=== PATIENT | male | born 2000 | race Caucasian/White ===

== ENCOUNTER 2022-05-02 09:38 | Emergency (ER) | payer BC ==
[~2022-05-02] VITALS: Ht 173.3 cm; Wt 60.0 kg
[~2022-05-02 09:38] MED LIST: AMOXICILLI400 MG/5 M PO; CIPRODEX1 ML AS; MOTRIN, CH20 MG/1 ML OR; NO; TET/DIP TOX1 ML IM; TYLENOL CH160 MG/51 OR
[2022-05-02 10:55] LABS: BASO% 0.2 % (0-3); EOS% 0.2 % (0-8); IMMATURE GRANULOCYTES 0.1 % (0.0-5.0); LYMPH% 5.1 % (15-41); MEAN CELL VOLUME 95.4 fL CALC (80.0-100.0); MEAN CORPUSCULAR HGB 31.6 pG CALC (26.0-32.0); MEAN CORPUSCULAR HGB CONC 33.1 g/dL CAL (32.0-36.0); NEUT# 9.37 thou/uL (1.82-7.42); NEUT% 85.4 % (42-76); RED BLOOD COUNT 5.64 mill/uL (4.70-6.10); RED CELL DISTRI WIDTH 11.9 % (11.5-15.5)
[2022-05-02 10:59] LABS: HEMATOCRIT 53.8 % (39.0-50.0); HEMOGLOBIN 17.8 g/dl (14.0-18.0)
[2022-05-02 11:10] LABS: ALBUMIN 5.3 g/dL (3.2-5.0); ALKALINE PHOSPHATASE 58 u/l (38-126); ANION GAP 15 (6-22 (CALC)); BILIRUBIN, TOTAL 1.4 mg/dL (0.2-1.3); BUN 19 mg/dL (9-20); BUN/CREATININE RATIO 13 (12-20 (CALC)); CARBON DIOXIDE 29 mmol/l (22-30); CHLORIDE 96 mmol/l (95-108); CREATININE 1.5 mg/dL (0.7-1.3); GFR FOR AFR.AMER. > 60 ML/MIN (>=60 (CALC)); GFR OTHER RACES 59 ML/MIN (>=60 (CALC)); LIPASE 230 u/l (23-300); POTASSIUM 4.8 mmol/l (3.5-5.1); SGOT/AST 40 u/l (17-59); SODIUM 135 mmol/l (137-146); TOTAL PROTEIN 8.3 g/dL (6.3-8.2)
[2022-05-02 11:18] VITALS: BP 142/95
[2022-05-02 11:30] VITALS: BP 128/87
[2022-05-02] MEDS ORDERED: AMOX/K CLAV875 M1 PO (13:55)
[2022-05-02 14:20] VITALS: BP 128/87
== END 2022-05-02 14:30 | disposition home or self-care (01) | DRG 552 ==
LOC: ED 09:38
PROVIDERS: Family Medicine
DX: M54.2 Cervicalgia (principal); R10.9 Unspecified abdominal pain; R07.81 Pleurodynia
CPT/HCPCS: Q9967

== ENCOUNTER 2022-06-21 10:55 | Emergency (ER) | payer BC ==
[2022-06-21] VITALS (8 sets, daily range): BP systolic 115–131; BP diastolic 70–90
[~2022-06-21] VITALS: Ht 173.3 cm; Wt 68.0 kg
[~2022-06-21 10:55] MED LIST changes: +AMOX/K CLAV875 M1 PO
[2022-06-21] MEDS ORDERED: NAPROXEN500 MG PO (12:26)
[2022-06-21] MEDS ORDERED: METHOCARBAMOL500 MG PO (12:26)
== END 2022-06-21 13:01 | disposition home or self-care (01) | DRG 999 ==
LOC: ED 10:55
DX: S00.33XA Contusion of nose, initial encounter (principal); S06.9X9A Unspecified intracranial injury with loss of consciousness of unspecified duration, initial encounter; Y04.0XXA Assault by unarmed brawl or fight, initial encounter; Y92.410 Unspecified street and highway as the place of occurrence of the external cause

== ENCOUNTER 2023-03-22 01:13 | Emergency (ER) | payer BC ==
[~2023-03-22] VITALS: Ht 177.8 cm; Wt 77.0 kg
[~2023-03-22 01:13] MED LIST changes: +METHOCARBAMOL500 MG PO; +NAPROXEN500 MG PO
[2023-03-22 02:15] VITALS: BP 128/83
[2023-03-22] MEDS ORDERED: KEFLEX500 MG PO (02:34)
== END 2023-03-22 04:22 | disposition home or self-care (01) | DRG 728 ==
LOC: ED 01:13
DX: A64 Unspecified sexually transmitted disease (principal); S31.21XA Laceration without foreign body of penis, initial encounter; X58.XXXA Exposure to other specified factors, initial encounter